=== PATIENT | female | born 1940 | race Caucasian/White ===

== ENCOUNTER 2022-12-25 14:22 | Outpatient (RCR) | payer MEDICARE, OTHER, SELFPAY | END 2022-12-26 14:06 | disposition home or self-care (01) | LOC: OT 14:22 | PROVIDERS: PCP Family Medicine; Visit Provider Family Medicine | DX: I89.0 Lymphedema, not elsewhere classified (principal) | CPT/HCPCS: 97110; 97140; 97166 ==

== ENCOUNTER 2023-03-11 10:10 | Outpatient (OUT) | payer MEDICARE, OTHER, SELFPAY ==
--- NOTE | 2023-03-11 10:13 | US_ITS ---
The [address] [address] Patient Name: SB LEMUS MRN: [facility]:[id number] date: 1940 Sex: F Assigned Patient Location: Current Patient Location: LAB Accession/Order Number: [id number] Exam Date: 03/11/2023 10:30 Report Date: 03/11/2023 11:46 At the request of: WICHO MASSEY Procedure: US renal BI EXAM: US renal BI HISTORY: Complex renal cyst N28.1, N20.1 COMPARISON: Ultrasound kidney 08/30/2022.. TECHNIQUE: Real-time ultrasound imaging of the kidneys and bladder. Findings: The right and left kidneys measure 10.7 and 10.0 cm. There is good corticomedullary differentiation bilaterally. No renal stones or collecting system dilatation. Redemonstrated off the interpolar region of the left kidney is a 3.0 x 2.4 x 2.6 cm cyst with a mural calcification. This is not changed significantly when compared to the prior study. No perinephric fluid collection. The bladder is nondistended limiting its evaluation. Prevoid volume of 15 mL. US/US renal BI IMPRESSION: 1. No significant interval change in the previously identified left renal cyst. Electronically authenticated by: AMAURY ADRIAN Date: 03/11/2023 11:46
== END 2023-03-11 10:11 | disposition home or self-care (01) ==
LOC: US 10:10
PROVIDERS: PCP Family Medicine; Visit Provider Urology
DX: N28.1 Cyst of kidney, acquired (principal); N20.1 Calculus of ureter
CPT/HCPCS: 76775

== ENCOUNTER 2023-03-11 11:29 | Outpatient (OUT) | payer MEDICARE, OTHER, SELFPAY ==
[2023-03-11 11:57] LABS: Basophils Absolute Auto 0.1 10^3/uL (0.0-0.1); Basophils Percent Auto 1.1 % (0.2-2.0); Eosinophils Absolute Auto 0.1 10^3/uL (0.0-0.7); Eosinophils Percent Auto 1.6 % (0.9-7.0); Hematocrit 33.4 % (36.0-48.0); Immature Granulocytes Abs Auto 0.04 10^3/uL (0.00-0.03); Immature Granulocytes Pct Auto 0.7 % (0.0-0.5); Lymphocytes Absolute Auto 0.7 10^3/uL (1.2-3.8); Lymphocytes Percent Auto 13.2 % (20.5-60.0); Mean Corpuscular HGB Conc 29.9 g/dL (29.9-35.2); Mean Corpuscular Hemoglobin 29.5 pg (26.7-34.0); Mean Corpuscular Volume 98.5 fL (81.0-99.0); Monocytes Absolute Auto 0.6 10^3/uL (0.3-0.8); Neutrophils Absolute Auto 4.1 10^3/uL (1.4-6.5); Neutrophils Percent Auto 73.4 % (43.0-75.0); Platelet Count 186 10^3/uL (150-450); Red Blood Count 3.39 10^6/uL (4.20-5.40); Red Cell Distribution Width 17.6 % (11.0-15.0); White Blood Count 5.6 10^3/uL (4.0-11.0)
[2023-03-11 12:37] LABS: Alanine Aminotransferase 10 U/L (14-59); Albumin Level 3.7 g/dL (3.4-5.0); Alkaline Phosphatase 147 U/L (46-116); Anion Gap 13.2; Aspartate Amino Transferase 15 U/L (15-37); BUN Creatinine Ratio 14.4; Calcium 9.6 mg/dL (8.5-10.1); Carbon Dioxide 26.5 mmol/L (21.0-32.0); Chloride 106 mmol/L (98-107); Estimated GFR (African America 50 (>=60); Estimated GFR (Non-African Ame 41 (>=60); Globulin 3.7 g/dL; Glucose 117 mg/dL (74-106); Potassium 4.7 mmol/L (3.5-5.1); Sodium 141 mmol/L (136-145); Total Protein 7.4 g/dL (6.4-8.2)
--- NOTE | 2023-03-11 13:02 | CA_ITS ---
Patient: SB LEMUS Exam Date: 03/11/2023 : 1940 Gender:F Ordering : COLTON SKINNER Admission #: [id number] Family : Order #: [id number] CLICK HERE TO VIEW EXAM ECHOCARDIOGRAM REPORT PROCEDURE: CA ECHO LIMITED INDICATIONS: Chronic CHF, Pulmonary HTN COMPARISON: None. DESCRIPTION: Limited ECHOCARDIOGRAM Real-time transthoracic echocardiography with 2D and M-mode performed. QUALITY: Technical quality was good. LEFT VENTRICLE: Normal chamber size. Normal left ventricular wall thickness. The septum is abnormal in motion consistent with right ventricular pressure/volume overload. Global left ventricular systolic function is at the lower limits of normal. LV EF: Estimated LVEF is 50%. DIASTOLIC: ATRIAL SEPTUM: LEFT ATRIUM: Moderate dilatation. RIGHT ATRIUM: Moderate dilatation. RIGHT VENTRICLE: Moderate dilatation. Mildly decreased right ventricular systolic function. TRICUSPID VALVE: Normal mobility and thickness. Severe pulmonary hypertension. RVSP 70 mmHg MITRAL VALVE: Normal mobility and thickness. AORTIC VALVE: Normal trileaflet appearance. The aortic valve opens well. AORTIC ROOT: Normal diameter and appearance. PULMONIC VALVE: Normal thickness and mobility. PERICARDIUM: Trivial pericardial effusion. IVC: Mild dilatation. Measuring 2.3 cm with no collapse PLEURA: CONCLUSION: 1. The left ventricular is normal in size and exhibits low normal systolic function. LVEF is 50%. 2. The right ventricle is moderately dilated with mildly reduced systolic function. 3. Moderate biatrial dilatation. 4. Severely elevated right-sided pressures. RVSP is 70 mmHg. 5. Limited study performed with limited Doppler interrogation of the tricuspid valve. Adult Echocardiography Procedure Report Left Ventricle LVEDD (3.7 - 5.6 cm): 5.28 cm LVESD (2.2 - 4.0 cm): 4.22 cm LVIVS thickness (0.6 - 1.2 cm): 0.70 cm LVPW thickness (0.5 - 1.0 cm): 0.84 cm LVOT Diameter 2.28 cm Left Ventricular Ejection Fraction: 50 % Left Atrium LA Volume Index (2D A2C): 48.36 ml/m2 Left Atrium Systolic Dimension: 4.76 cm Mitral Valve Right Ventricle RV Internal Diastolic Dimension: 4.41 cm Aorta AO Root Diam: 3.24 cm Ascending Ao Diam: 3.19 cm Aortic Valve Tricuspid Valve Peak Velocity (Regurgitant Flow): 3.74 m/s, 3.32 m/s Pulmonic Valve Right Atrium Right Atrium Systolic Pressure: 99.47 ml, 99.47 ml Dictated by: Rony Horn M.D. on 03/11/2023 at 17:33 Approved by: Rony Horn M.D. on 03/11/2023 at 17:38
== END 2023-03-11 11:30 | disposition home or self-care (01) ==
LOC: LAB 11:30
PROVIDERS: PCP Family Medicine; Visit Provider Nurse Practitioner
DX: I50.42 Chronic combined systolic (congestive) and diastolic (congestive) heart failure (principal); I27.20 Pulmonary hypertension, unspecified
CPT/HCPCS: 36415; 76775; 80053; 85025; 93308

== ENCOUNTER 2023-03-28 20:13 | Inpatient (IN) | payer MEDICARE, OTHER, SELFPAY ==
[2023-03-28] VITALS (27 sets, daily range): BP systolic 116–156; BP diastolic 62–87; PULSE 59–78; RESP 1–38; TEMP 36.7–36.8; O2SAT 83–99; BMI 34.2
--- NOTE | 2023-03-28 20:34 | ED.GENADUL1 ---
HPI - General Adult General Chief complaint: Shortness of Breath/Dyspnea Stated complaint: weakness, altered Time Seen by Provider: 03/28/23 20:33 Source: family Source information: granddaughter Mode of arrival: Wheelchair Limitations: altered mental status History of Present Illness HPI narrative: patient lives alone. Daughter states she is usually in her chair that she can recline in and raise her legs due to chronic edema. Tonight family found her slumped over and unresponsive in her chair. She did soil her clothing. Family brought her in. No history of dyspnea or cough. Feels very weak and required several staff to help get her out of the car. She also has swelling of the right arm which family states has been present for at least one month Related Data Home Medications Medication Instructions Recorded Confirmed aspirin 81 mg tablet,delayed 81 mg PO DAILY 03/28/23 03/28/23 release blood-glucose meter (True Metrix 03/28/23 03/28/23 Glucose Meter) furosemide 40 mg tablet 40 mg PO DAILY 03/28/23 03/28/23 glipizide 5 mg tablet 5 mg PO DAILY 03/28/23 03/28/23 lancets 30 gauge (Unilet Super 03/28/23 03/28/23 Thin Lancets) levothyroxine 75 mcg tablet 75 mcg PO DAILY 03/28/23 03/28/23 metoprolol succinate 25 mg 25 mg PO DAILY 03/28/23 03/28/23 tablet,extended release 24 hr omeprazole 20 mg capsule,delayed 20 mg PO DAILY 03/28/23 03/28/23 release potassium chloride 10 mEq 10 meq PO DAILY 03/28/23 03/28/23 tablet,extended release Allergies Allergy/AdvReac Type Severity Reaction Status Date / Time No Known Drug Allergies Allergy Verified 03/28/23 20:20 Review of Systems ROS Status of ROS 10 or more systems reviewed and unremarkable except as noted in history and below Exam Constitutional Vital Signs, click to edit/add: Last Vital Signs Temp 98.1 F 03/28/23 20:20 Pulse 77 03/28/23 22:01 Resp 21 03/28/23 22:01 BP 132/69 03/28/23 22:01 Pulse Ox 98 03/28/23 22:00 O2 Del Method Room Air 03/28/23 20:20 Common normals: no apparent distress, oriented x3 and alert Eye Common normals: EOMs intact bilaterally and conjunctivae normal Respiratory Common normals: normal respiratory effort, no retractions, no use of accessory muscles and clear to auscultation bilaterally GI Common normals: soft to palpation Other: trace edema of her abdominal wall Extremity Other: tense edema bilat lower extremities including feet and thighs Neuro Common normals: oriented x3, CN's II-XII intact bilaterally, moves all extremities and no focal motor deficits Psych Appearance: grossly normal Course Vital Signs Vital signs: Vital Signs Temperature 98.1 F 03/28/23 20:20 Pulse Rate 59 L 03/28/23 20:20 Respiratory Rate 38 H 03/28/23 20:20 Blood Pressure 146/82 H 03/28/23 20:20 Pulse Oximetry 96 03/28/23 20:20 Oxygen Delivery Method Room Air 03/28/23 20:20 Temperature 98.1 F 03/28/23 20:20 Pulse Rate 77 03/28/23 22:01 Respiratory Rate 21 03/28/23 22:01 Blood Pressure 132/69 03/28/23 22:01 Pulse Oximetry 98 03/28/23 22:00 Oxygen Delivery Method Room Air 03/28/23 20:20 Medical Decision Making MDM Narrative Medical decision making narrative: diabetic patient lives alone. Found at home slumped in her chair and has soiled herself. Brought to the ER by family. Very weak and staff had to help her out of the car. She is awake and in no distress. Has chronic edema of her legs , right arm and even her abdominal wall. labs remarkable for UTI. Discussed with the hospitalist and patient accepted for admission Lab Data Labs: Lab Results 03/28/23 03/28/23 Range/Units 20:40 21:10 WBC 5.3 (4.0-11.0) 10^3/uL RBC 3.32 L (4.20-5.40) 10^6/uL Hgb 9.9 L (12.0-16.0) g/dL Hct 33.5 L (36.0-48.0) % MCV 100.9 H (81.0-99.0) fL MCH 29.8 (26.7-34.0) pg MCHC 29.6 L (29.9-35.2) g/dL RDW 18.3 H (11.0-15.0) % Plt Count 197 (150-450) 10^3/uL MPV 10.8 (9.5-13.5) fL Neut % (Auto) 68.6 (43.0-75.0) % Lymph % (Auto) 17.1 L (20.5-60.0) % [place] % (Auto) 10.1 (1.7-12.0) % Eos % (Auto) 2.5 (0.9-7.0) % Baso % (Auto) 1.3 (0.2-2.0) % Neut # (Auto) 3.6 (1.4-6.5) 10^3/uL Lymph # (Auto) 0.9 L (1.2-3.8) 10^3/uL [place] # (Auto) 0.5 (0.3-0.8) 10^3/uL Eos # (Auto) 0.1 (0.0-0.7) 10^3/uL Baso # (Auto) 0.1 (0.0-0.1) 10^3/uL Abs Immat Gran (auto) 0.02 (0.00-0.03) 10^3/uL Imm/Tot Granulo (auto) 0.4 (0.0-0.5) % Sodium 144 (136-145) mmol/L Potassium 5.1 (3.5-5.1) mmol/L Chloride 111 H (98-107) mmol/L Carbon Dioxide 23.4 (21.0-32.0) mmol/L Anion Gap 14.7 BUN 18.0 (7.0-18.0) mg/dL Creatinine 1.30 H (0.55-1.02) mg/dL Est GFR ( Amer) 48 L (>=60) Est GFR (Non-Af Amer) 39 L (>=60) BUN/Creatinine Ratio 13.8 Glucose 180 H (74-106) mg/dL Lactate 2.1 H (0.4-2.0) mmol/L Calcium 8.9 (8.5-10.1) mg/dL Troponin I High Sens 10.3 (4.0-51.3) pg/mL NT-Pro-B Natriuret Pep 6661.0 H* (<=1800.0) pg/mL Urine Color Yellow (YELLOW) Urine Clarity Clear (CLEAR) Urine pH 6.0 (5.0-9.0) Ur Specific [place] 1.025 (1.005-1.025) Urine Protein 100 A (NEG/TRACE) mg/dL Urine Glucose (UA) Negative (NEGATIVE) mg/dL Urine Ketones Trace A (NEGATIVE) mg/dL Urine Occult Blood Small A (NEGATIVE) Urine Nitrite Positive A (NEGATIVE) Urine Bilirubin Negative (NEGATIVE) Urine Urobilinogen 1.0 (0.2-1.0) EU/dL Ur Leukocyte Esterase Small A (NEGATIVE) Urine RBC None seen (0-2) #/HPF Urine WBC >100 A (NONE SEEN) #/HPF Ur Squamous Epith Cells None seen (NONE/RARE) #/LPF Urine Crystals None seen (None Seen) #/HPF Urine Bacteria Large A (NONE SEEN) #/HPF Urine Casts Seen A (NONE SEEN) #/LPF Hyaline Casts Rare Urine Mucus None seen (NONE SEEN) Ur Culture Indicated? Yes Discharge Plan Discharge Chief Complaint: Shortness of Breath/Dyspnea Clinical Impression: Acute UTI (urinary tract infection) Patient Disposition: Admitted As Inpatient
--- NOTE | 2023-03-28 20:37 | ECG_ITS ---
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
--- NOTE | 2023-03-28 20:37 | XR_ITS ---
The [address] [address] Patient Name: SB LEMUS MRN: [id number] date: 1940 Sex: F Assigned Patient Location: ER Current Patient Location: ER Accession/Order Number: [id number] Exam Date: 03/28/2023 20:50 Report Date: 03/28/2023 21:00 At the request of: JOSE WILSON Procedure: XR chest 1V EXAM: XR chest 1V at 2049 hours HISTORY: weakness and wheezing. COMPARISON: 04/25/2022 TECHNIQUE: AP upright portable chest x-ray FINDINGS: The heart is enlarged with mild prominence of the central pulmonary vasculature. No acute infiltrate, effusion or pneumothorax is identified. The osseous structures are grossly intact. XR/XR chest 1V IMPRESSION: Mild cardiac enlargement with mild vascular congestion. There is no evidence of a focal infiltrate or overt cardiac decompensation, and the overall appearance of the chest is essentially unchanged. Electronically authenticated by: LING MAC Date: 03/28/2023 21:00
--- NOTE | 2023-03-28 20:51 | PC.NURSE ---
pt brought in by granddaughter. pt lives at home alone and takes care of self. pt has neighbors that check in on patient in the morning and at night. pt's granddaughter comes in a couple times of week to help pt out around house. granddaughter was at pt;s house yesterday and states that patient was fine and today when she came to check on pt she was unresponsive and soiled herself. granddaughter didn't call ems because she wanted to clean pt up before arrival. pt does take lasix for lower extremity edema but edema is worse today and all throughout bilateral lower extremities and up into patients abdomen. pt also has swelling to right upper extremity. pt and family member are poor historians and are unable to recall what medical history the patient has. on arrival to ED pt is wheezing upon auscultation.
[2023-03-28 21:15] LABS: Basophils Absolute Auto 0.1 10^3/uL (0.0-0.1); Basophils Percent Auto 1.3 % (0.2-2.0); Eosinophils Absolute Auto 0.1 10^3/uL (0.0-0.7); Eosinophils Percent Auto 2.5 % (0.9-7.0); Hematocrit 33.5 % (36.0-48.0); Hemoglobin 9.9 g/dL (12.0-16.0); Immature Granulocytes Abs Auto 0.02 10^3/uL (0.00-0.03); Immature Granulocytes Pct Auto 0.4 % (0.0-0.5); Lymphocytes Absolute Auto 0.9 10^3/uL (1.2-3.8); Lymphocytes Percent Auto 17.1 % (20.5-60.0); Mean Corpuscular HGB Conc 29.6 g/dL (29.9-35.2); Mean Corpuscular Hemoglobin 29.8 pg (26.7-34.0); Mean Corpuscular Volume 100.9 fL (81.0-99.0); Mean Platelet Volume 10.8 fL (9.5-13.5); Monocytes Absolute Auto 0.5 10^3/uL (0.3-0.8); Monocytes Percent Auto 10.1 % (1.7-12.0); Neutrophils Absolute Auto 3.6 10^3/uL (1.4-6.5); Neutrophils Percent Auto 68.6 % (43.0-75.0); Platelet Count 197 10^3/uL (150-450); Red Blood Count 3.32 10^6/uL (4.20-5.40); Red Cell Distribution Width 18.3 % (11.0-15.0); White Blood Count 5.3 10^3/uL (4.0-11.0)
[2023-03-28 21:32] LABS: Bilirubin Urine NEGATIVE (NEGATIVE); Blood Urine SMALL (NEGATIVE); Clarity Urine CLEAR (CLEAR); Color Urine YELLOW (YELLOW); Glucose Urine UA NEGATIVE (NEGATIVE); Ketones Urine TRACE mg/dL (NEGATIVE); Leukocyte Esterase Urine SMALL (NEGATIVE); Nitrite Urine POSITIVE (NEGATIVE); Protein Urine 100 mg/dL (NEG/TRACE); Specific Gravity Urine 1.025 (1.005-1.025)
[2023-03-28 21:36] LABS: Urine Microscopic Indicated YES
[2023-03-28 21:49] LABS: Anion Gap 14.7; BUN Creatinine Ratio 13.8; Calcium 8.9 mg/dL (8.5-10.1); Carbon Dioxide 23.4 mmol/L (21.0-32.0); Chloride 111 mmol/L (98-107); Estimated GFR (African America 48 (>=60); Estimated GFR (Non-African Ame 39 (>=60); Glucose 180 mg/dL (74-106); Potassium 5.1 mmol/L (3.5-5.1); Sodium 144 mmol/L (136-145); Troponin I High Sensitivity 10.3 pg/mL (4.0-51.3)
[2023-03-28 21:50] LABS: Lactate/Lactic Acid 2.1 mmol/L (0.4-2.0)
[2023-03-28 22:01] LABS: RBC Urine NONE SEEN #/HPF (0-2); WBC Urine >100 #/HPF (NONE SEEN)
[2023-03-28 22:02] LABS: Bacteria Urine LARGE #/HPF (NONE SEEN); Crystals Seen? None Seen #/HPF (None Seen); Mucus Urine NONE SEEN (NONE SEEN); Squamous Epithelial Cell Urine NONE SEEN #/LPF (NONE/RARE)
[2023-03-28 22:04] LABS: Cast Seen? SEEN #/LPF (NONE SEEN); Hyaline Casts Urine RARE
[2023-03-28 22:05] LABS: Urine Culture Indicated YES
[2023-03-28] MEDS: CEFTRIAXONE 1,000 MG in 0.9 % SODIUM CHLORIDE 50 ML 100 MG IV (22:16)
[2023-03-28 22:45] LABS: Alanine Aminotransferase 11 U/L (14-59); Albumin Globulin Ratio 1.1; Albumin Level 3.7 g/dL (3.4-5.0); Alkaline Phosphatase 152 U/L (46-116); Aspartate Amino Transferase 17 U/L (15-37); Globulin 3.4 g/dL; Total Protein 7.1 g/dL (6.4-8.2)
[2023-03-28 22:49] LABS: Bilirubin Direct 0.7 mg/dL (0.0-0.2)
[2023-03-28] MEDS: FUROSEMIDE 40 MG/4 ML VIAL IVP (22:55)
--- NOTE | 2023-03-28 23:44 | PC.NURSE ---
patient states she has glasses but did not bring them because they don't work anymore
[2023-03-29] VITALS (7 sets, daily range): BP systolic 117–129; BP diastolic 65–87; PULSE 67–79; RESP 16–18; TEMP 36.6–36.8; O2SAT 90–93
--- NOTE | 2023-03-29 00:52 | US_ITS ---
The [address] [address] Patient Name: SB LEMUS MRN: [id number] date: 1940 Sex: F Assigned Patient Location: MS Current Patient Location: MS Accession/Order Number: [id number] Exam Date: 03/29/2023 14:35 Report Date: 03/30/2023 01:59 At the request of: PAULINE WAGNER Procedure: US venous doppler UE RT EXAMINATION: US venous doppler UE RT HISTORY: swelling COMPARISON: No relevant comparison available. FINDINGS: REGION: Right upper extremity THROMBI: None. COMPRESSIBILITY: Normal compressibility. FLOW: Normal waveform and antegrade flow between 5 and 20 cm/s. OTHER: Irregular waveform; nonspecific. US/US venous doppler UE RT IMPRESSION: 1. No deep vein thrombus within the right upper extremity. Electronically authenticated by: ANDREE WILLETT Date: 03/30/2023 01:59
--- NOTE | 2023-03-29 00:52 | US_ITS ---
The [address] [address] Patient Name: SB LEMUS MRN: [id number] date: 1940 Sex: F Assigned Patient Location: MS Current Patient Location: MS Accession/Order Number: [id number] Exam Date: 03/29/2023 14:35 Report Date: 03/30/2023 01:58 At the request of: PAULINE WAGNER Procedure: US venous doppler LE BI EXAMINATION: US venous doppler LE BI HISTORY: swelling COMPARISON: No relevant comparison available. FINDINGS: REGION: Bilateral extremities THROMBI: None within deep system. COMPRESSIBILITY: Normal compressibility. FLOW: Normal waveform and antegrade flow between 5 and 20 cm/s. OTHER: Areas of chronic thrombus within the left small saphenous and great saphenous veins. US/US venous doppler LE BI IMPRESSION: 1. No deep vein thrombus within the right or left lower extremities. Electronically authenticated by: ANDREE WILLETT Date: 03/30/2023 01:58
[2023-03-29 01:30] LABS: Percent Iron Saturation 19.6 %
[2023-03-29 01:34] LABS: Estimated Average Glucose 131 mg/dL; Glycohemoglobin A1C 6.2 % (4.5-6.2)
--- NOTE | 2023-03-29 02:58 | P.PN_ITS ---
Progress Note: Subjective Subjective Interval history: Chief complaint: Generalized weakness, confusion HPI: 82-year-old female with history of HTN, DM type 2, HDL, GERD, pulmonary hypertension, who presents to the ER with complaints of generalized weakness. She lives by herself and the neighbors went to check on her found her to be very weak unable to get up on her own with her legs swollen and right arm swollen. At baseline she uses a walker and ambulates at home. Patient seems to be confused not providing a meaningful history. Workup in the ER found her to have a postvoid residual of 400 and a Shankar catheter was placed, UA suggestive of UTI and Rocephin was given. Other abnormal labs with low hemoglobin, hyperglycemia. Hospital Medicine consulted for admission. Past medical history: Hypertension, diabetes mellitus type 2, hypercholesterolemia, pulmonary hypertension, gastroesophageal reflux disease past surgical history: Unable to be obtained due to confusion social history: Lives by herself, no reports of alcohol or tobacco use. Allergies: No known drug allergies Home medications: Confirmed, reconciled in chart. Review of systems: Unable to be obtained due to confusion physical exam: Vitals as per chart documentation general: Lying in bed, pleasantly confused, no acute distress HEENT: Normocephalic, atraumatic, wearing eyeglasses, trachea midline CVS: Bilateral lower extremity edema, regular rate and rhythm lungs: Diminished breath sounds in bases extremities: Significant right upper extremity swelling neuro: No focal deficits skin: Multiple scabs noted Exam Constitutional Vital Signs, click to edit/add: Last Vital Signs Temp 98.2 F 03/28/23 23:57 Pulse 78 03/28/23 23:57 Resp 18 03/28/23 23:57 BP 156/84 H 03/28/23 23:57 Pulse Ox 91 L 03/28/23 23:57 O2 Del Method Room Air 03/28/23 23:57 Progress Note: Objective Labs Labs: Short CBC 03/28/23 Range/Units 21:10 WBC 5.3 (4.0-11.0) 10^3/uL Hgb 9.9 L (12.0-16.0) g/dL Hct 33.5 L (36.0-48.0) % Plt Count 197 (150-450) 10^3/uL BMP 03/28/23 21:10 Sodium 144 Potassium 5.1 Chloride 111 H Carbon Dioxide 23.4 BUN 18.0 Creatinine 1.30 H Glucose 180 H Calcium 8.9 Liver Function 03/28/23 Range/Units 21:10 Total Bilirubin 2.0 H (0.2-1.0) mg/dL Direct Bilirubin 0.7 H* (0.0-0.2) mg/dL AST 17 (15-37) U/L ALT 11 L (14-59) U/L Alkaline Phosphatase 152 H (46-116) U/L Albumin 3.7 (3.4-5.0) g/dL Urine 03/28/23 Range/Units 20:40 Urine Color Yellow (YELLOW) Urine Clarity Clear (CLEAR) Urine pH 6.0 (5.0-9.0) Ur Specific [place] 1.025 (1.005-1.025) Urine Protein 100 A (NEG/TRACE) mg/dL Urine Glucose (UA) Negative (NEGATIVE) mg/dL Progress Note: A&P Assessment and Plan (1) Acute UTI (urinary tract infection): (2) CHF (congestive heart failure): (3) CKD (chronic kidney disease): (4) Hypothyroidism: Plan acute encephalopathy, metabolic acute cystitis with microscopic hematuria acute urinary retention generalized weakness, debility at risk for falls bilateral lower extremity edema right upper extremity significant edema normocytic anemia unknown hemoglobin baseline diabetes mellitus type 2 with hyperglycemia pulmonary hypertension primary hypertension - admit to telemetry bed - avoid sedatives, hypnotics, delirium precautions, fall precautions, PT / OT evaluation - Shankar catheter placed in the ER, monitor urine output, lactic acid, start Rocephin, check urine cultures - check TSH, B12, folate, iron panel, retic count, electrophoresis anemia panel - check A1c level, low carb diet, sliding scale insulin coverage - Check venous duplex lower extremities and right upper extremity unsure why patient has unilateral right arm swelling, denies any history of lymphedema consider CT chest if DVT rules out -- 40 IV Lasix requested DVT prophylaxis-Lovenox medications reconciliation form completed goals of care-presumed full code until patient more alert her need to call family find out POA or decision maker to discuss code status communications: Discussed with emergency room physician, bedside nurse, updated plan of care, all questions answered to their satisfaction. Disposition: Consult long term care social worker for safe discharge as she lives alone as a provider of this telehealth evaluation, requested by the patient's evaluating physician, I attest that I introduced myself to the patient, provided my credentials, determined that telemedicine via real-time too interactive audio and video platform his an appropriate and effective means of providing this service. I reviewed the patient's chart and had a discussion with the member of the patient's treatment team. The patient treatment team and I mutually agreed with continuation of this evaluation via telemedicine. The nurse was present entire time of the encounter was able to move the stethoscope in appropriate directions. Telemedicine Attestation Telemedicine Attestation I conducted this encounter from [ [place]] via secure live, [id number] video conference with the patient, located at [facility] with [ nursing team]. Prior to the interview, the risks and benefits of telemedicine were discussed with the patient and verbal consent was obtained.
[2023-03-29] MEDS: LEVOTHYROXINE SODIUM 75 MCG TABLET PO (05:40)
[2023-03-29 05:54] LABS: Anion Gap 11.4; BUN Creatinine Ratio 14.8; Calcium 8.8 mg/dL (8.5-10.1); Carbon Dioxide 26.8 mmol/L (21.0-32.0); Chloride 111 mmol/L (98-107); Estimated GFR (African America 49 (>=60); Estimated GFR (Non-African Ame 40 (>=60); Glucose 107 mg/dL (74-106); Potassium 4.2 mmol/L (3.5-5.1); Sodium 145 mmol/L (136-145)
[2023-03-29 05:57] LABS: Basophils Absolute Auto 0.1 10^3/uL (0.0-0.1); Basophils Percent Auto 1.7 % (0.2-2.0); Eosinophils Absolute Auto 0.2 10^3/uL (0.0-0.7); Eosinophils Percent Auto 4.2 % (0.9-7.0); Hemoglobin 9.8 g/dL (12.0-16.0); Immature Granulocytes Abs Auto 0.02 10^3/uL (0.00-0.03); Immature Granulocytes Pct Auto 0.4 % (0.0-0.5); Lymphocytes Absolute Auto 1.1 10^3/uL (1.2-3.8); Lymphocytes Percent Auto 21.6 % (20.5-60.0); Mean Corpuscular HGB Conc 29.7 g/dL (29.9-35.2); Mean Corpuscular Hemoglobin 29.8 pg (26.7-34.0); Mean Corpuscular Volume 100.3 fL (81.0-99.0); Mean Platelet Volume 10.5 fL (9.5-13.5); Monocytes Absolute Auto 0.6 10^3/uL (0.3-0.8); Neutrophils Absolute Auto 3.2 10^3/uL (1.4-6.5); Neutrophils Percent Auto 61.1 % (43.0-75.0); Platelet Count 182 10^3/uL (150-450); Red Blood Count 3.29 10^6/uL (4.20-5.40); Red Cell Distribution Width 18.3 % (11.0-15.0); White Blood Count 5.3 10^3/uL (4.0-11.0)
[2023-03-29 06:07] LABS: Magnesium 1.9 mg/dL (1.8-2.4); Troponin I High Sensitivity 16.3 pg/mL (4.0-51.3)
--- NOTE | 2023-03-29 07:59 | P.HP_ITS ---
H&P: HPI History of Present Illness Chief complaint: weakness, altered Narrative: patient is a 82-year-old female with past medical history of hypertension, type 2 diabetes, hyperlipidemia, GERD, significant pulmonary hypertension, and chronic diastolic and systolic heart failure. She follows regularly with [facility] cardiology and just recently had an ECHO completed. she lives by herself and her grandchildren brought her to the emergency department when she was found sitting slumped in her recliner at home. She reports increased weakness and swelling of the right upper extremity and bilateral lower extremities. In the emergency department was found to have a urinary tract infection and also seems to have fluid overload based on chest x-ray and exam findings. She is alert and oriented this morning on exam there is no family in the room, she does note she has been taking her medications as prescribed. She denies any current concerns or complaints other than the swelling of her right upper extremity and lower extremities. Review of Systems ROS Narrative ROS: a complete review of systems were reviewed with patient and are positive as below or listed in History of Chief Complaint. General: no fever, chills, night sweats Head: no headache, trauma, visual changes, nausea or vomiting Skin: no reported rashes, itching or sores Eyes: no blurriness of vision Ears: no reported hearing loss, vertigo, earache, or tinnitus Throat: no sore throat, hoarseness, swelling of neck, or tongue pain Heart: no chest pain Lungs: no shortness of breath or cough GI: no diarrhea or vomiting/nausea Urinary: no urinary urgency, frequency or pain Neuro: no numbness or tingling HEM: no bleeding issues or bruising ENDO: thyroid problems Psych: no anxiety or depression [facility] Medical History (Updated 03/29/23 @ 11:31 by Kayleigh Lance DO) Social History Within the past year, how often did you have a drink containing alcohol: monthly or less Within the past year, how many standard drinks containing alcohol did you have on a typical day: 1 or 2 Within the past year, how often did you have six or more drinks on one occasion: never Total score: 0 Score interpretation: A score less than 3 is consistent with normal alcohol consumption. Smoking status: Never smoker Non-prescribed substance use: denies use Previous occupational history: Retired Highest level of school completed/degree received: high school graduate Are you now , , , , never or living with a partner: In a typical week, how many times do you talk on the telephone with family, friends, or neighbors: 3 or more times per week How often do you get together with friends or relatives: 3 or more times per week Little interest or pleasure in doing things: not at all Feeling down, depressed, or hopeless: not at all Feel stressed/tense/nervous/anxious/difficulty sleeping: not at all Do you think of yourself as: straight/heterosexual Gender Identity: female Meds Home Medications and Allergies Home Medications Medication Instructions Recorded Confirmed Type aspirin 81 mg tablet,delayed 81 mg PO DAILY 03/28/23 03/28/23 History release blood-glucose meter (True Metrix 03/28/23 03/28/23 History Glucose Meter) furosemide 40 mg tablet 40 mg PO DAILY 03/28/23 03/28/23 History glipizide 5 mg tablet 5 mg PO DAILY 03/28/23 03/28/23 History lancets 30 gauge (Unilet Super 03/28/23 03/28/23 History Thin Lancets) levothyroxine 75 mcg tablet 75 mcg PO DAILY 03/28/23 03/28/23 History metoprolol succinate 25 mg 25 mg PO DAILY 03/28/23 03/28/23 History tablet,extended release 24 hr omeprazole 20 mg capsule,delayed 20 mg PO DAILY 03/28/23 03/28/23 History release potassium chloride 10 mEq 10 meq PO DAILY 03/28/23 03/28/23 History tablet,extended release Allergies Allergy/AdvReac Type Severity Reaction Status Date / Time No Known Drug Allergies Allergy Verified 03/28/23 20:20 Exam Narrative Exam Narrative: General: Patient is alert, and oriented to person, place and time with normal affect Skin: candidal rash under bilateral breasts, groin Head: atraumatic, acephalic Eyes: PERRLA, no nystagmus present, conjunctiva clear but both eyes have matting upper and lower lids, no scleral icterus Ears: normal gross auditory acuity Nose: symmetric, no discharge, no maxillary or frontal sinus tenderness Neck: no masses palpated, normal thyroid, no JVD or audible carotid bruits Heart: Normal rate and rhythm, no murmurs/rubs/gallops Lungs: no audible wheezes, crackles and normal breath sounds all lung loco Abdomen: Normal audible bowel sounds, no distension, No palpable masses, no organomegaly, no rebound/guarding/ or rigidity, umbilical hernia, reducible, no erythema Musculoskeletal: +1 swelling bilateral lower extremities, +1 right upper extremity Vascular: Normal carotid, radial, femoral, posterior tibial, and dorsalis pedis pulses Lymph: no supraclavicular, axillary, or anterior/posterior cervical adenopathy Neuro: CN II-X grossly intact, normal sensation upper and lower extremities Constitutional Vital Signs, click to edit/add: Last Vital Signs Temp 98.1 F 03/29/23 05:27 Pulse 67 03/29/23 05:27 Resp 18 03/29/23 05:27 BP 126/72 03/29/23 05:27 Pulse Ox 92 L 03/29/23 05:27 O2 Del Method Room Air 03/29/23 05:27 Results Labs Labs: Short CBC 03/28/23 03/29/23 Range/Units 21:10 05:05 WBC 5.3 5.3 (4.0-11.0) 10^3/uL Hgb 9.9 L 9.8 L (12.0-16.0) g/dL Hct 33.5 L 33.0 L (36.0-48.0) % Plt Count 197 182 (150-450) 10^3/uL BMP 03/28/23 03/29/23 21:10 05:05 Sodium 144 145 Potassium 5.1 4.2 Chloride 111 H 111 H Carbon Dioxide 23.4 26.8 BUN 18.0 19.0 H Creatinine 1.30 H 1.28 H Glucose 180 H 107 H Calcium 8.9 8.8 Liver Function 03/28/23 Range/Units 21:10 Total Bilirubin 2.0 H (0.2-1.0) mg/dL Direct Bilirubin 0.7 H* (0.0-0.2) mg/dL AST 17 (15-37) U/L ALT 11 L (14-59) U/L Alkaline Phosphatase 152 H (46-116) U/L Albumin 3.7 (3.4-5.0) g/dL Urine 03/28/23 Range/Units 20:40 Urine Color Yellow (YELLOW) Urine Clarity Clear (CLEAR) Urine pH 6.0 (5.0-9.0) Ur Specific [place] 1.025 (1.005-1.025) Urine Protein 100 A (NEG/TRACE) mg/dL Urine Glucose (UA) Negative (NEGATIVE) mg/dL Assessment and Plan Assessment and Plan (1) Acute UTI (urinary tract infection): Assessment and Plan: continue Rocephin, awaiting urine culture (2) Metabolic encephalopathy: Assessment and Plan: monitor neurologic status and monitor telemetry, mental status has improved this morning (3) CHF (congestive heart failure): Assessment and Plan: acute on chronic, will increase Lasix from 40 mg daily to 40 mg IV twice a day, fluid restriction, salt restriction, monitor ins and outs and daily weights. Qualifiers: Heart failure type: combined systolic and diastolic Heart failure ch ronicity: acute on chronic Qualified Code(s): I50.43 - Acute on chronic combined systolic (congestive) and diastolic (congestive) heart failure (4) CKD (chronic kidney disease): Assessment and Plan: monitor daily Qualifiers: Chronic kidney disease stage: stage 2 (mild) Qualified Code(s): N18.2 - Chronic kidney disease, stage 2 (mild) (5) Hypothyroidism: Assessment and Plan: continue levothyroxine Qualifiers: Hypothyroidism type: acquired Qualified Code(s): E03.9 - Hypothyroidism, unspecified (6) Type 2 diabetes mellitus: Assessment and Plan: monitor poc qac and hs, SSI as needed (7) GERD (gastroesophageal reflux disease): Assessment and Plan: continue omeprazole (8) Swelling of right upper extremity: Assessment and Plan: will check ultrasounds/dopplers of RUE and BLE (9) Blepharitis, bilateral: Assessment and Plan: erythromycin ointment (10) Candidiasis: Assessment and Plan: topical nystatin (11) Weakness: Assessment and Plan: from infection, pt/ot Plan patient is a full code Continue Lovenox for deep vein thrombosis prophylaxis Patient is inpatient status and expected to stay more than two minutes due to her mental status, and fluid overload
[2023-03-29] MEDS: FUROSEMIDE 40 MG TABLET PO (08:53)
[2023-03-29] MEDS: POTASSIUM CHLORIDE 10 MEQ ER TABLET PO ×2 (08:53→21:04)
[2023-03-29] MEDS: OMEPRAZOLE 20 MG CAPSULE.DR PO (08:53)
[2023-03-29] MEDS: METOPROLOL SUCCINATE 25 MG TAB.ER.24H PO (08:53)
[2023-03-29] MEDS: NYSTATIN 100,000 UNITS/GRAM CREAM 15 GM TUBE 1 APPLIC TOPICAL (08:54)
[2023-03-29] MEDS: ASPIRIN 81 MG TABLET.DR PO (08:54)
[2023-03-29] MEDS: ENOXAPARIN SODIUM 40 MG/0.4 ML SYRINGE SUBQ (08:54)
[2023-03-29 11:33] LABS: Glucometer 145 mg/dL (74-106)
[2023-03-29 12:31] LABS: Lactate Dehydrogenase 229 U/L (81-234); Thyroid Stimulating Hormone 4.227 uIU/mL (0.358-3.740); Uric Acid 4.5 mg/dL (2.6-6.0)
[2023-03-29 16:13] LABS: Glucometer 151 mg/dL (74-106)
[2023-03-29 20:55] LABS: Glucometer 145 mg/dL (74-106)
[2023-03-29] MEDS: ERYTHROMYCIN OP OINT 0.5% 1 GM TUBE EYE-BOTH (21:04)
[2023-03-29] MEDS: INSULIN ASPART 300 UNIT/3 ML PEN SUBQ (21:05)
[2023-03-29] MEDS: NYSTATIN 15 GM POWDER 1 APPLIC TOPICAL (21:05)
[2023-03-29] MEDS: FUROSEMIDE 40 MG/4 ML VIAL IVP (21:31)
[2023-03-29] MEDS: CEFTRIAXONE 1,000 MG in 0.9 % SODIUM CHLORIDE 50 ML 100 MG IV (23:07)
[2023-03-30 04:45] VITALS: O2SAT 93
[2023-03-30] MEDS: LEVOTHYROXINE SODIUM 75 MCG TABLET PO (05:32)
[2023-03-30 05:35] VITALS: BP 107/58; PULSE 89; RESP 16; TEMP 36.4; O2SAT 91
[2023-03-30 07:38] LABS: Glucometer 125 mg/dL (74-106)
--- NOTE | 2023-03-30 08:21 | P.PN_ITS ---
Progress Note: Subjective Subjective Interval history: She is alert and oriented this morning on exam there is no family in the room. She denies any current concerns or complaints other than the swelling of her right upper extremity and lower extremities but states that they have improved. Exam Narrative Exam Narrative: General: Patient is alert, and oriented to person, place and time with normal affect Skin: candidal rash under bilateral breasts, groin Head: atraumatic, acephalic Eyes: PERRLA, no nystagmus present, conjunctiva clear but both eyes have matting upper and lower lids, no scleral icterus Ears: normal gross auditory acuity Nose: symmetric, no discharge, no maxillary or frontal sinus tenderness Neck: no masses palpated, normal thyroid, no JVD or audible carotid bruits Heart: Normal rate and rhythm, no murmurs/rubs/gallops Lungs: no audible wheezes, crackles and normal breath sounds all lung loco Abdomen: Normal audible bowel sounds, no distension, No palpable masses, no organomegaly, no rebound/guarding/ or rigidity, umbilical hernia, reducible, no erythema Musculoskeletal: +1 swelling bilateral lower extremities, +1 right upper extremity Vascular: Normal carotid, radial, femoral, posterior tibial, and dorsalis pedis pulses Lymph: no supraclavicular, axillary, or anterior/posterior cervical adenopathy Neuro: CN II-X grossly intact, normal sensation upper and lower extremities Constitutional Vital Signs, click to edit/add: Last Vital Signs Temp 97.5 F L 03/30/23 05:35 Pulse 89 03/30/23 05:35 Resp 16 03/30/23 05:35 BP 107/58 03/30/23 05:35 Pulse Ox 91 L 03/30/23 05:35 O2 Del Method Room Air 03/30/23 05:35 Progress Note: A&P Assessment and Plan (1) Acute UTI (urinary tract infection): Assessment and Plan: continue Rocephin, awaiting urine culture (2) Metabolic encephalopathy: Assessment and Plan: monitor neurologic status and monitor telemetry, mental status has improved (3) CHF (congestive heart failure): Assessment and Plan: acute on chronic, will increase Lasix from 40 mg daily to 40 mg IV twice a day, fluid restriction, salt restriction, monitor ins and outs and daily weights, cards consult, known [facility] patient Qualifiers: Heart failure chronicity: acute on chronic Heart failure type: combined systolic and diastolic Qualified Code(s): I50.43 - Acute on chronic combined systolic (congestive) and diastolic (congestive) heart failure (4) CKD (chronic kidney disease): Assessment and Plan: monitor daily Qualifiers: Chronic kidney disease stage: stage 2 (mild) Qualified Code(s): N18.2 - Chronic kidney disease, stage 2 (mild) (5) Hypothyroidism: Assessment and Plan: TSH elevated, increase levothyroxine to 100mcg daily Qualifiers: Hypothyroidism type: acquired Qualified Code(s): E03.9 - Hypothyroidism, unspecified (6) Type 2 diabetes mellitus: Assessment and Plan: monitor poc qac and hs, SSI as needed (7) GERD (gastroesophageal reflux disease): Assessment and Plan: continue omeprazole (8) Swelling of right upper extremity: Assessment and Plan: normal ultrasound, no DVT, dependent edema (9) Blepharitis, bilateral: Assessment and Plan: erythromycin ointment (10) Candidiasis: Assessment and Plan: topical nystatin (11) Weakness: Assessment and Plan: pt/ot Plan patient is a full code Continue Lovenox for deep vein thrombosis prophylaxis Patient is inpatient status and expected to stay more than two minutes due to her mental status, and fluid overload
[2023-03-30] MEDS: ENOXAPARIN SODIUM 40 MG/0.4 ML SYRINGE SUBQ (08:45)
[2023-03-30] MEDS: POTASSIUM CHLORIDE 10 MEQ ER TABLET PO ×2 (08:45→21:55)
[2023-03-30] MEDS: OMEPRAZOLE 20 MG CAPSULE.DR PO (08:46)
[2023-03-30] MEDS: METOPROLOL SUCCINATE 25 MG TAB.ER.24H PO (08:46)
[2023-03-30] MEDS: ASPIRIN 81 MG TABLET.DR PO (08:46)
[2023-03-30] MEDS: FUROSEMIDE 40 MG/4 ML VIAL IVP ×2 (08:46→21:55)
[2023-03-30] MEDS: ERYTHROMYCIN OP OINT 0.5% 1 GM TUBE EYE-BOTH ×2 (08:46→21:55)
[2023-03-30] MEDS: NYSTATIN 15 GM POWDER 1 APPLIC TOPICAL ×2 (08:46→21:56)
[2023-03-30 09:08] LABS: Haptoglobin 64 mg/dL (42-346)
[2023-03-30 11:05] LABS: Glucometer 156 mg/dL (74-106)
[2023-03-30 11:30] VITALS: O2SAT 95
[2023-03-30 14:26] VITALS: BP 108/62; PULSE 78; RESP 18; TEMP 36.6; O2SAT 90
[2023-03-30 16:14] LABS: Glucometer 118 mg/dL (74-106)
[2023-03-30 19:53] VITALS: O2SAT 91
[2023-03-30] MEDS: NYSTATIN 100,000 UNITS/GRAM CREAM 15 GM TUBE 1 APPLIC TOPICAL (21:55)
[2023-03-30] MEDS: INSULIN ASPART 300 UNIT/3 ML PEN SUBQ (21:57)
[2023-03-30 21:59] LABS: Glucometer 173 mg/dL (74-106)
[2023-03-30] MEDS: CEFTRIAXONE 1,000 MG in 0.9 % SODIUM CHLORIDE 50 ML 100 MG IV (22:12)
[2023-03-30 22:22] VITALS: BP 126/71; PULSE 78; RESP 18; TEMP 36.5; O2SAT 92
[2023-03-31] VITALS (7 sets, daily range): BP systolic 105–119; BP diastolic 57–87; PULSE 89–109; RESP 16–20; TEMP 36.7–36.8; O2SAT 90–94
[2023-03-31 04:58] LABS: Basophils Absolute Auto 0.1 10^3/uL (0.0-0.1); Basophils Percent Auto 1.2 % (0.2-2.0); Eosinophils Absolute Auto 0.2 10^3/uL (0.0-0.7); Eosinophils Percent Auto 4.1 % (0.9-7.0); Hematocrit 29.9 % (36.0-48.0); Hemoglobin 9.1 g/dL (12.0-16.0); Immature Granulocytes Abs Auto 0.01 10^3/uL (0.00-0.03); Immature Granulocytes Pct Auto 0.2 % (0.0-0.5); Lymphocytes Percent Auto 17.3 % (20.5-60.0); Mean Corpuscular HGB Conc 30.4 g/dL (29.9-35.2); Mean Corpuscular Hemoglobin 29.6 pg (26.7-34.0); Mean Corpuscular Volume 97.4 fL (81.0-99.0); Monocytes Absolute Auto 0.7 10^3/uL (0.3-0.8); Monocytes Percent Auto 11.4 % (1.7-12.0); Neutrophils Absolute Auto 3.9 10^3/uL (1.4-6.5); Neutrophils Percent Auto 65.8 % (43.0-75.0); Platelet Count 172 10^3/uL (150-450); Red Blood Count 3.07 10^6/uL (4.20-5.40); Red Cell Distribution Width 18.2 % (11.0-15.0); White Blood Count 5.9 10^3/uL (4.0-11.0)
[2023-03-31 05:23] LABS: Alanine Aminotransferase 11 U/L (14-59); Albumin Globulin Ratio 0.9; Albumin Level 2.9 g/dL (3.4-5.0); Alkaline Phosphatase 138 U/L (46-116); Anion Gap 12.6; Aspartate Amino Transferase 15 U/L (15-37); BUN Creatinine Ratio 17.6; Bilirubin Total 0.9 mg/dL (0.2-1.0); Calcium 8.8 mg/dL (8.5-10.1); Carbon Dioxide 28.6 mmol/L (21.0-32.0); Chloride 104 mmol/L (98-107); Cholesterol 104 mg/dL (<=200); Estimated GFR (African America 41 (>=60); Estimated GFR (Non-African Ame 34 (>=60); Globulin 3.3 g/dL; Glucose 131 mg/dL (74-106); HDL Cholesterol 35 mg/dL (40-60); Potassium 4.2 mmol/L (3.5-5.1); Sodium 141 mmol/L (136-145); Total Protein 6.2 g/dL (6.4-8.2); Triglycerides 44 mg/dL (<=150); VLDL CHOLESTEROL 8.8 mg/dL
[2023-03-31] MEDS: LEVOTHYROXINE SODIUM 100 MCG TABLET PO (05:39)
[2023-03-31 07:54] LABS: Glucometer 149 mg/dL (74-106)
--- NOTE | 2023-03-31 08:20 | P.PN_ITS ---
Progress Note: Subjective Subjective Interval history: She is alert and oriented this morning on exam, grand daughter and brother present at time of exam. She denies any current concerns or complaints other than the swelling of her right upper extremity and lower extremities but states that they have improved. We discussed code status with family and patient today, she wishes to be DNRCCA, this was signed and code status changed on the chart. Exam Narrative Exam Narrative: General: Patient is alert, and oriented to person, place and time with normal affect Skin: candidal rash under bilateral breasts, groin Heart: Normal rate and rhythm, no murmurs/rubs/gallops Lungs: no audible wheezes, crackles and normal breath sounds all lung loco Abdomen: Normal audible bowel sounds, no distension, No palpable masses, no organomegaly, no rebound/guarding/ or rigidity, umbilical hernia, reducible, no erythema Musculoskeletal: +1 swelling bilateral lower extremities, +1 right upper extremity Vascular: Normal carotid, radial, femoral, posterior tibial, and dorsalis pedis pulses Lymph: no supraclavicular, axillary, or anterior/posterior cervical adenopathy Neuro: CN II-X grossly intact, normal sensation upper and lower extremities Constitutional Vital Signs, click to edit/add: Last Vital Signs Temp 98.3 F 03/31/23 07:25 Pulse 109 H 03/31/23 07:25 Resp 20 03/31/23 07:25 BP 119/65 03/31/23 07:25 Pulse Ox 92 L 03/31/23 07:25 O2 Del Method Room Air 03/31/23 07:25 Progress Note: Objective Labs Labs: Short CBC 03/31/23 Range/Units 04:31 WBC 5.9 (4.0-11.0) 10^3/uL Hgb 9.1 L (12.0-16.0) g/dL Hct 29.9 L (36.0-48.0) % Plt Count 172 (150-450) 10^3/uL BMP 03/31/23 04:31 Sodium 141 Potassium 4.2 Chloride 104 Carbon Dioxide 28.6 BUN 26.0 H Creatinine 1.48 H Glucose 131 H Calcium 8.8 Liver Function 03/31/23 Range/Units 04:31 Total Bilirubin 0.9 (0.2-1.0) mg/dL AST 15 (15-37) U/L ALT 11 L (14-59) U/L Alkaline Phosphatase 138 H (46-116) U/L Albumin 2.9 L (3.4-5.0) g/dL Progress Note: A&P Assessment and Plan (1) Acute UTI (urinary tract infection): Assessment and Plan: continue Rocephin, awaiting urine culture, positive for Ecoli (2) Metabolic encephalopathy: Assessment and Plan: resolved. monitor neurologic status and monitor telemetry, mental status has improved (3) CHF (congestive heart failure): Assessment and Plan: acute on chronic, will increase Lasix from 40 mg daily to 40 mg IV twice a day, fluid restriction, salt restriction, monitor ins and outs and daily weights, cards consult, known [facility] patient, still requires diuresis today Qualifiers: Heart failure chronicity: acute on chronic Heart failure type: combined systolic and diastolic Qualified Code(s): I50.43 - Acute on chronic combined systolic (congestive) and diastolic (congestive) heart failure (4) CKD (chronic kidney disease): Assessment and Plan: monitor daily Qualifiers: Chronic kidney disease stage: stage 2 (mild) Qualified Code(s): N18.2 - Chronic kidney disease, stage 2 (mild) (5) Hypothyroidism: Assessment and Plan: TSH elevated, increase levothyroxine to 100mcg daily Qualifiers: Hypothyroidism type: acquired Qualified Code(s): E03.9 - Hypothyroidism, unspecified (6) Type 2 diabetes mellitus: Assessment and Plan: monitor poc qac and hs, SSI as needed (7) GERD (gastroesophageal reflux disease): Assessment and Plan: continue omeprazole (8) Swelling of right upper extremity: Assessment and Plan: normal ultrasound, no DVT, dependent edema (9) Blepharitis, bilateral: Assessment and Plan: erythromycin ointment (10) Candidiasis: Assessment and Plan: topical nystatin (11) Weakness: Assessment and Plan: pt/ot Plan patient is DNRCCA Continue Lovenox for deep vein thrombosis prophylaxis Patient is inpatient status and expected to stay more than two minutes due to need for further diuresis
[2023-03-31] MEDS: ENOXAPARIN SODIUM 40 MG/0.4 ML SYRINGE SUBQ (09:18)
[2023-03-31] MEDS: NYSTATIN 15 GM POWDER 1 APPLIC TOPICAL ×2 (09:19→20:41)
[2023-03-31] MEDS: ASPIRIN 81 MG TABLET.DR PO (09:19)
[2023-03-31] MEDS: METOPROLOL SUCCINATE 25 MG TAB.ER.24H PO (09:19)
[2023-03-31] MEDS: FUROSEMIDE 40 MG/4 ML VIAL IVP (09:19)
[2023-03-31] MEDS: POTASSIUM CHLORIDE 10 MEQ ER TABLET PO ×2 (09:19→20:43)
[2023-03-31] MEDS: OMEPRAZOLE 20 MG CAPSULE.DR PO (09:19)
[2023-03-31] MEDS: ERYTHROMYCIN OP OINT 0.5% 1 GM TUBE EYE-BOTH ×2 (09:20→20:48)
[2023-03-31] MEDS: NYSTATIN 100,000 UNITS/GRAM CREAM 15 GM TUBE 1 APPLIC TOPICAL ×2 (09:20→20:42)
--- NOTE | 2023-03-31 10:09 | SWNOTE1 ---
SW spoke with doctor and case management and pt/family would like her to go to SNF. SW stopped in to talk with pt and family and provided list from medicare.gov with star ratings. They are going to review and SW to stop back in.
--- NOTE | 2023-03-31 10:32 | SWNOTE1 ---
SW spoke with pt and family in room. Pt's daughter and in room. Pt has been to [facility], she went last year in April for rehab. Pt's family is still discussing facilities. Daughter would like to call a few facilities and check in to alf rates as well. They did ask if a choice has to be made today, SW let them know it would be good to know today so SW can make sure a bed is available at the facility they want SW to check back in a little bit.
--- NOTE | 2023-03-31 10:50 | CM.NOTE ---
Rounds made with Dr. Lance, no discharge today. Continue IV diuresis and possible discharge tomorrow.
--- NOTE | 2023-03-31 11:31 | CM.NOTE ---
Important message From Medicare discussed with pt, pt verbalizes understanding and signs paper. Original given to pt and copy placed on pt's chart.
--- NOTE | 2023-03-31 11:37 | SWNOTE1 ---
It was pt's grand-daughter and brother in room.
--- NOTE | 2023-03-31 11:37 | PT.DAILY ---
Physical Therapy Daily Note PT Daily Note/Assess Start: 03/31/23 11:32 Freq: Status: Active Protocol: Document 03/31/23 11:32 SOCORRO (Rec: 03/31/23 11:33 [facility]-[email or web address]) Physical Therapy Daily Note/Assessment Time In/Time Out Time In 10:40 Time Out 11:15 Pain In Pain N/A Pain Out Pain N/A Subjective Subjective Pt sitting in BS chair upon arrival. Agrees to PT. student affairs dean would like to give pt a shower when done with session. Therapeutic Exercise Time Therapeutic Exercise Minutes (minutes) 5 Therapeutic Exercise Units 0 Therapeutic Exercise Treatment Therapeutic Exercise Treatment Pt performs seated Total Physical Therapy Time Total Therapy Minutes 5 Total Physical Therapy Units 0 Edit Result 03/31/23 11:32 MYASAUL (Rec: 03/31/23 11:[email or web address] Daily Note/Assessment Therapeutic Exercise Treatment Therapeutic Exercise Treatment Pt performs seated LE strengthening ex in BS chair. AP, LAQ, marches, abd step outs and add squeezes 10x ea. Therapeutic Activity Time Therapeutic Activity Minutes (minutes) 23 Therapeutic Activity Units 2 Therapeutic Activity Treatment Chair Transfer Ability Moderate Assist Therapeutic Activity Comments Sit>stand from BS chair to RW with ModA. Demonstrates heavy forward flexed lean on RW. Static standing 30 sec before requesting to sit down. Therapist got a short RW for pt to help avoid leaning over RW. Pt sit>stand again to new RW with ModA. Pt able to stand a little more erect with this attempt. Pt amb 10' with RW CGA/Claudette before needing to sit . Pt sits on couch in room. WC is brought to room to transport her to shower. Sit> stand to RW from couch - ModA. Stand pivot to WC with Claudette - increased time needed for pivot. Pt is transported to shower area. Sit>stand from WC to RW and another stand pivot to shower bench. Pt remains in shower area and school of nursing director is notified and present upon therapists departure. Total Physical Therapy Time Total Therapy Minutes 28 Total Physical Therapy Units 2 Summary Daily Note Summary Improved standing posture with shorter RW. Very easily fatigued with activity today, Would benefit from SNF to regain strength/endurance to return to PLOF.
[2023-03-31 11:54] LABS: Glucometer 135 mg/dL (74-106)
[2023-03-31 12:08] LABS: Albumin 3.4 g/dL (2.9-4.4); Alpha-1-Globulin 0.3 g/dL (0.0-0.4); Alpha-2-Globulin 0.7 g/dL (0.4-1.0); Gamma Globulin 0.8 g/dL (0.4-1.8); Protein, Total 6.3 g/dL (6.0-8.5)
--- NOTE | 2023-03-31 12:35 | SWNOTE1 ---
Family would like [facility]. to send information.
[2023-03-31 14:29] LABS: SARS-CoV-2 Ag NEGATIVE (NEGATIVE)
--- NOTE | 2023-03-31 15:29 | SWNOTE1 ---
SW received message from [facility] and they are able to accept. SW updated nursing and family.
[2023-03-31 16:08] LABS: Glucometer 172 mg/dL (74-106)
--- NOTE | 2023-03-31 18:26 | P.CACN_ITS ---
History of Present Illness History of Present Illness Consult date: 03/31/23 Requesting physician: Kayleigh Lance Consult reason: congestive heart failure Chief complaint: weakness, altered Narrative: Mrs. Mitchell is an 82-year-old female with a past medical history including paroxysmal atrial fibrillation status post watchman, heart failure with preserved ejection fraction, coronary artery disease, who presented to the hospital with complaints of altered mental status and shortness of breath. Patient was found to have a urinary tract infection, and she was noted to be fluid overloaded. Cardiology was consulted for assistance in management of heart failure with preserved ejection fraction. Patient is interviewed and examined. She is tangential in her train of thought, and is unable to explain exactly what is bothering her. She does report improved shortness of breath, but states that she continues to have lower extremity edema, in addition to right upper extremity swelling. She adamantly denies any chest pain. She denies any orthopnea or paroxysmal nocturnal dyspnea. She states that she is taking her medications as prescribed. Of note: Patient recently had an outpatient echocardiogram done. Ejection fraction was noted to be 50%. She has moderately dilated atria. She has severely elevated RVSP at 70 mmHg. Mild reduction in RV systolic function was noted. Review of Systems ROS Status of ROS 10 or more systems reviewed and unremarkable except as noted in history and below [facility] Medical History (Updated 03/29/23 @ 11:31 by Kayleigh Lance DO) Social History Within the past year, how often did you have a drink containing alcohol: monthly or less Within the past year, how many standard drinks containing alcohol did you have on a typical day: 1 or 2 Within the past year, how often did you have six or more drinks on one occasion: never Total score: 0 Score interpretation: A score less than 3 is consistent with normal alcohol consumption. Smoking status: Never smoker Non-prescribed substance use: denies use Previous occupational history: Retired Highest level of school completed/degree received: high school graduate Are you now , , , , never or living with a partner: In a typical week, how many times do you talk on the telephone with family, friends, or neighbors: 3 or more times per week How often do you get together with friends or relatives: 3 or more times per week Little interest or pleasure in doing things: not at all Feeling down, depressed, or hopeless: not at all Feel stressed/tense/nervous/anxious/difficulty sleeping: not at all Do you think of yourself as: straight/heterosexual Gender Identity: female Meds Home Medications and Allergies Home Medications Medication Instructions Recorded Confirmed Type aspirin 81 mg tablet,delayed 81 mg PO DAILY 03/28/23 03/28/23 History release blood-glucose meter (True Metrix 03/28/23 03/28/23 History Glucose Meter) furosemide 40 mg tablet 40 mg PO DAILY 03/28/23 03/28/23 History glipizide 5 mg tablet 5 mg PO DAILY 03/28/23 03/28/23 History lancets 30 gauge (Unilet Super 03/28/23 03/28/23 History Thin Lancets) levothyroxine 75 mcg tablet 75 mcg PO DAILY 03/28/23 03/28/23 History metoprolol succinate 25 mg 25 mg PO DAILY 03/28/23 03/28/23 History tablet,extended release 24 hr omeprazole 20 mg capsule,delayed 20 mg PO DAILY 03/28/23 03/28/23 History release potassium chloride 10 mEq 10 meq PO DAILY 03/28/23 03/28/23 History tablet,extended release Allergies Allergy/AdvReac Type Severity Reaction Status Date / Time No Known Drug Allergies Allergy Verified 03/28/23 20:20 Exam Constitutional Vital Signs, click to edit/add: Last Vital Signs Temp 98.0 F 03/31/23 14:00 Pulse 92 H 03/31/23 14:00 Resp 18 03/31/23 14:00 BP 118/87 03/31/23 14:00 Pulse Ox 94 L 03/31/23 14:00 O2 Del Method Room Air 03/31/23 14:00 Documenting provider has reviewed patient's vital signs: yes Common normals: no apparent distress and alert General appearance: cooperative Orientation/consciousness: Yes awake HENMT Common normals: normocephalic and head/scalp atraumatic Eye Common normals: PERRL and EOMs intact bilaterally Respiratory Effort & inspection: able to speak in complete sentences Cardio Common normals: regular rate and regular rhythm Heart sounds: S1 normal and S2 normal GI Common normals: Normal to inspection, nondistended, normoactive bowel sounds present Extremity General: edema (Bilateral lower extremity edema, 2+. RUE swelling. ) Neuro Common normals: moves all extremities and no focal motor deficits Psych Common normals: cooperative Appearance: grossly normal Results Labs and Meds Lab results: Cardiac Enzymes 03/31/23 Range/Units 04:31 AST 15 (15-37) U/L Lipids 03/31/23 Range/Units 04:31 Triglycerides 44 (<=150) mg/dL Cholesterol 104 (<=200) mg/dL HDL Cholesterol 35 L (40-60) mg/dL Cholesterol/HDL Ratio 3.0 CBC 03/31/23 Range/Units 04:31 WBC 5.9 (4.0-11.0) 10^3/uL RBC 3.07 L (4.20-5.40) 10^6/uL Hgb 9.1 L (12.0-16.0) g/dL Hct 29.9 L (36.0-48.0) % Plt Count 172 (150-450) 10^3/uL Neut # (Auto) 3.9 (1.4-6.5) 10^3/uL Lymph # (Auto) 1.0 L (1.2-3.8) 10^3/uL [place] # (Auto) 0.7 (0.3-0.8) 10^3/uL Eos # (Auto) 0.2 (0.0-0.7) 10^3/uL Baso # (Auto) 0.1 (0.0-0.1) 10^3/uL Comprehensive Metabolic Panel 03/31/23 Range/Units 04:31 Sodium 141 (136-145) mmol/L Potassium 4.2 (3.5-5.1) mmol/L Chloride 104 (98-107) mmol/L Carbon Dioxide 28.6 (21.0-32.0) mmol/L BUN 26.0 H (7.0-18.0) mg/dL Creatinine 1.48 H (0.55-1.02) mg/dL Glucose 131 H (74-106) mg/dL Calcium 8.8 (8.5-10.1) mg/dL AST 15 (15-37) U/L ALT 11 L (14-59) U/L Alkaline Phosphatase 138 H (46-116) U/L Total Protein 6.2 L (6.4-8.2) g/dL Albumin 2.9 L (3.4-5.0) g/dL Intake and Output 03/31/23 03/31/23 03/31/23 07:59 15:59 23:59 Intake Total 240 / 240 Output Total 1400 / 2200 2049 Balance -1400 / -2100 -1810 / -1810 Intake: Oral 240 / 240 Output: Urine 525 / 525 Urine Amount (Catheter) 1399 1525 / 1525 Urethral 1399 1525 / 1525 Other: Weight 89 kg Assessment and Plan Assessment and Plan (1) Acute UTI (urinary tract infection): (2) Metabolic encephalopathy: (3) CHF (congestive heart failure): Qualifiers: Heart failure type: combined systolic and diastolic Heart failure chronicity: acute on chronic Qualified Code(s): I50.43 - Acute on chronic combined systolic (congestive) and diastolic (congestive) heart failure (4) CKD (chronic kidney disease): Qualifiers: Chronic kidney disease stage: stage 2 (mild) Qualified Code(s): N18.2 - Chronic kidney disease, stage 2 (mild) (5) Hypothyroidism: Qualifiers: Hypothyroidism type: acquired Qualified Code(s): E03.9 - Hypothyroidism, unspecified (6) Type 2 diabetes mellitus: (7) GERD (gastroesophageal reflux disease): (8) Swelling of right upper extremity: (9) Blepharitis, bilateral: (10) Candidiasis: (11) Weakness: Plan 1. For her heart failure with preserved ejection fraction, acute on chronic, agree with current diuretic regimen. Lasix was increased from 40 mg daily to 40 mg twice daily IV. She has had good output. Would continue at current dose, she appears to be fluid overloaded. 2. Would recommen repeating echo to assess LVEF, wall motion, RVSP 3. Would recommend US of RUE to ensure no clot 4. She has watchmann for AFib VTE prophylaxis. Continue current rate control medications 5. Treatment of underlying UTI as per primary Thank you for allowing us to participate in the care of your patient. please do not hesitate to contact [place] [facility]ology with any questions or concerns. Jez Verduzco MD
[2023-03-31 20:50] LABS: Glucometer 170 mg/dL (74-106)
[2023-03-31] MEDS: INSULIN ASPART 300 UNIT/3 ML PEN SUBQ (21:15)
[2023-03-31] MEDS: CEFTRIAXONE 1,000 MG in 0.9 % SODIUM CHLORIDE 50 ML 100 MG IV (22:02)
[2023-04-01 04:38] VITALS: BP 90/51; PULSE 110; RESP 20; TEMP 38.1; O2SAT 92
[2023-04-01 04:50] VITALS: TEMP 38.1
[2023-04-01] MEDS: LEVOTHYROXINE SODIUM 100 MCG TABLET PO (04:50)
[2023-04-01] MEDS: ACETAMINOPHEN 325 MG TABLET 650 MG PO (04:50)
[2023-04-01 05:19] LABS: Basophils Absolute Auto 0.1 10^3/uL (0.0-0.1); Eosinophils Absolute Auto 0.2 10^3/uL (0.0-0.7); Eosinophils Percent Auto 3.5 % (0.9-7.0); Hemoglobin 9.4 g/dL (12.0-16.0); Immature Granulocytes Abs Auto 0.02 10^3/uL (0.00-0.03); Immature Granulocytes Pct Auto 0.3 % (0.0-0.5); Lymphocytes Absolute Auto 1.2 10^3/uL (1.2-3.8); Lymphocytes Percent Auto 20.7 % (20.5-60.0); Mean Corpuscular HGB Conc 31.3 g/dL (29.9-35.2); Mean Corpuscular Hemoglobin 30.5 pg (26.7-34.0); Mean Corpuscular Volume 97.4 fL (81.0-99.0); Mean Platelet Volume 10.2 fL (9.5-13.5); Monocytes Absolute Auto 0.9 10^3/uL (0.3-0.8); Monocytes Percent Auto 14.2 % (1.7-12.0); Neutrophils Absolute Auto 3.6 10^3/uL (1.4-6.5); Neutrophils Percent Auto 60.3 % (43.0-75.0); Platelet Count 171 10^3/uL (150-450); Red Blood Count 3.08 10^6/uL (4.20-5.40); Red Cell Distribution Width 17.7 % (11.0-15.0)
[2023-04-01 05:44] LABS: Alanine Aminotransferase 12 U/L (14-59); Albumin Globulin Ratio 0.8; Albumin Level 2.9 g/dL (3.4-5.0); Alkaline Phosphatase 139 U/L (46-116); Anion Gap 10.2; Aspartate Amino Transferase 20 U/L (15-37); BUN Creatinine Ratio 21.4; Bilirubin Total 1.1 mg/dL (0.2-1.0); Calcium 8.3 mg/dL (8.5-10.1); Carbon Dioxide 28.7 mmol/L (21.0-32.0); Chloride 105 mmol/L (98-107); Estimated GFR (African America 44 (>=60); Estimated GFR (Non-African Ame 36 (>=60); Globulin 3.5 g/dL; Glucose 132 mg/dL (74-106); Potassium 3.9 mmol/L (3.5-5.1); Sodium 140 mmol/L (136-145); Total Protein 6.4 g/dL (6.4-8.2)
[2023-04-01 06:27] VITALS: TEMP 37.3
[2023-04-01] MEDS: ENOXAPARIN SODIUM 30 MG/0.3 ML SYRINGE SUBQ (08:39)
[2023-04-01] MEDS: OMEPRAZOLE 20 MG CAPSULE.DR PO (08:39)
[2023-04-01] MEDS: FUROSEMIDE 40 MG/4 ML VIAL IVP (08:39)
[2023-04-01] MEDS: POTASSIUM CHLORIDE 10 MEQ ER TABLET PO (08:40)
[2023-04-01] MEDS: NYSTATIN 100,000 UNITS/GRAM CREAM 15 GM TUBE 1 APPLIC TOPICAL (08:40)
[2023-04-01] MEDS: ASPIRIN 81 MG TABLET.DR PO (08:40)
[2023-04-01] MEDS: METOPROLOL SUCCINATE 25 MG TAB.ER.24H PO (08:40)
[2023-04-01] MEDS: ERYTHROMYCIN OP OINT 0.5% 1 GM TUBE EYE-BOTH (08:40)
[2023-04-01] MEDS: NYSTATIN 15 GM POWDER 1 APPLIC TOPICAL (08:41)
--- NOTE | 2023-04-01 08:56 | PM.DS1 ---
DS: Providers Provider Date of admission: 03/28/23 23:36 Primary care physician: Samantha Ewing MD Admitting clinician: Aysha Vela Consults: 03/29/23 00:48 Occupational Therapy Eval and Treat Routine Reason for consultation: fall risk Physical Therapy Eval and Treat Routine Reason for consultation: fall risk 03/30/23 13:02 Consult to Cardiology Routine Consulting Provider: SHORTY SYLVESTER Reason for consultation: acute chf Has provider been notified: No Attending physician on discharge: Kayleigh Lance DS: Diagnosis Discharge Diagnosis (1) Acute UTI (urinary tract infection): (2) Metabolic encephalopathy: (3) CHF (congestive heart failure): Qualifiers: Heart failure chronicity: acute on chronic Heart failure type: combined systolic and diastolic Qualified Code(s): I50.43 - Acute on chronic combined systolic (congestive) and diastolic (congestive) heart failure (4) CKD (chronic kidney disease): Qualifiers: Chronic kidney disease stage: stage 2 (mild) Qualified Code(s): N18.2 - Chronic kidney disease, stage 2 (mild) (5) Hypothyroidism: Qualifiers: Hypothyroidism type: acquired Qualified Code(s): E03.9 - Hypothyroidism, unspecified (6) Type 2 diabetes mellitus: (7) GERD (gastroesophageal reflux disease): (8) Swelling of right upper extremity: (9) Blepharitis, bilateral: (10) Candidiasis: (11) Weakness: DS: Summary Hospital Course Hospital Course: urinary tract infection from Escherichia coli is sensitive to ciprofloxacin. Will place on 250 mg twice a day ?7 days, patient continued on Rocephin here for a white blood cell count and signs of sepsis at the time of discharge. There was a Shankar catheter inserted as patient was having weakness to get up on her own to use the restroom this will be continued at the [place] [facility] and they can remove Shankar when they 1st see fit. Acute on chronic combined congestive heart failure, patient has diuresed well on Lasix 40 mg IV twice a day. We'll continue 40 mg by mouth twice a day ?7 days along with potassium replacement at 10 mEq by mouth twice a day ?7 days. Patient will need a recheck electrolytes and renal function after completion of the seven days of Lasix and potassium. She will then resume her Lasix 40 mg by mouth daily along with her potassium 10 mEq by mouth daily. cardiology was consult and had No new recommendations. She will follow up with cardiology as an outpatient.patient will also need her thyroid-stimulating hormone rechecked as it was slightly elevated on the 75 ?g daily. Ultrasound of her right upper shot today was negative for any deep vein thromboses, all dependent edema which seemed to improve with diuresis. We'll continue on topical nystatin for her candidal infection and erythromycin ointment for her bilateral blepharitis. She will be discharged to [facility] for acute rehab. Patient is a DNR CCA Status at Discharge Functional status at discharge: uses cane/walker Overall status at discharge: patient is progressing back to baseline Time Spent with Patient Time attestation: Total time spent providing and/or coordinating discharge services: Time spent: greater than 30 minutes Quality: Stroke Symptom Onset Unknown: No Exam Narrative Exam Narrative: General: Patient is alert, and oriented to person, place and time with normal affect Skin: candidal rash under bilateral breasts, groin Heart: Normal rate and rhythm, no murmurs/rubs/gallops Lungs: no audible wheezes, crackles and normal breath sounds all lung loco Abdomen: Normal audible bowel sounds, no distension, No palpable masses, no organomegaly, no rebound/guarding/ or rigidity, umbilical hernia, reducible, no erythema Musculoskeletal: +1 swelling bilateral lower extremities, +1 right upper extremity Vascular: Normal carotid, radial, femoral, posterior tibial, and dorsalis pedis pulses Lymph: no supraclavicular, axillary, or anterior/posterior cervical adenopathy Neuro: CN II-X grossly intact, normal sensation upper and lower extremities Constitutional Vital Signs, click to edit/add: Last Vital Signs Temp 99.2 F 04/01/23 06:27 Pulse 110 H 04/01/23 04:38 Resp 20 04/01/23 04:38 BP 90/51 04/01/23 04:38 Pulse Ox 92 L 04/01/23 04:38 O2 Del Method Room Air 04/01/23 04:38 DS: Data Data Completed and Pending Labs on day of discharge: Labs from last 24 hours 04/01/23 03/31/23 03/31/23 04:44 20:47 16:07 WBC 6.0 RBC 3.08 L Hgb 9.4 L Hct 30.0 L MCV 97.4 MCH 30.5 MCHC 31.3 RDW 17.7 H Plt Count 171 MPV 10.2 Neut % (Auto) 60.3 Lymph % (Auto) 20.7 [place] % (Auto) 14.2 H Eos % (Auto) 3.5 Baso % (Auto) 1.0 Neut # (Auto) 3.6 Lymph # (Auto) 1.2 [place] # (Auto) 0.9 H Eos # (Auto) 0.2 Baso # (Auto) 0.1 Abs Immat Gran (auto) 0.02 Imm/Tot Granulo (auto) 0.3 Sodium 140 Potassium 3.9 Chloride 105 Carbon Dioxide 28.7 Anion Gap 10.2 BUN 30.0 H Creatinine 1.40 H Est GFR ( Amer) 44 L Est GFR (Non-Af Amer) 36 L BUN/Creatinine Ratio 21.4 Glucose 132 H Calcium 8.3 L Total Bilirubin 1.1 H AST 20 ALT 12 L Alkaline Phosphatase 139 H Total Protein 6.4 Total Protein (PEP) Albumin 2.9 L Albumin (PEP) Globulin 3.5 Globulin (PEP) Albumin/Globulin Ratio 0.8 Albumin/Globulin (PEP) Fmvul-0-Qiwovqtrk Nujkc-2-Jjslilrqb Beta Globulins Gamma Globulins M-Evan PEP Note SARS-CoV-2 (PCR) POC Glucose 170 H 172 H 03/31/23 03/31/23 03/29/23 14:07 11:43 05:05 WBC RBC Hgb Hct MCV MCH MCHC RDW Plt Count MPV Neut % (Auto) Lymph % (Auto) [place] % (Auto) Eos % (Auto) Baso % (Auto) Neut # (Auto) Lymph # (Auto) [place] # (Auto) Eos # (Auto) Baso # (Auto) Abs Immat Gran (auto) Imm/Tot Granulo (auto) Sodium Potassium Chloride Carbon Dioxide Anion Gap BUN Creatinine Est GFR ( Amer) Est GFR (Non-Af Amer) BUN/Creatinine Ratio Glucose Calcium Total Bilirubin AST ALT Alkaline Phosphatase Total Protein Total Protein (PEP) 6.3 Albumin Albumin (PEP) 3.4 Globulin Globulin (PEP) 2.9 Albumin/Globulin Ratio Albumin/Globulin (PEP) 1.2 Hprct-9-Ebejufzwz 0.3 Agkds-5-Drxqagmvf 0.7 Beta Globulins 1.1 Gamma Globulins 0.8 M-Evan Not observed PEP Note Comment SARS-CoV-2 (PCR) Negative POC Glucose 135 H Discharge Plan Discharge Disposition: Xfer SNF Discharge Medications: New nystatin 100,000 unit/gram powder 1 applic topical BID 10 Days Qty: 1 0RF erythromycin 5 mg/gram (0.5 %) Ointment 1,000 mg EYE-BOTH BID 7 Days Qty: 2800 0RF potassium chloride [Klor-Con M10] 10 mEq Tablet,Er Particles/Crystals 10 meq PO BID 7 Days Qty: 14 0RF ciprofloxacin HCl 500 mg tablet 250 mg PO BID 7 Days Qty: 7 0RF furosemide [Lasix] 40 mg tablet 40 mg PO BID 7 Days Qty: 14 0RF Rx Instructions: 40mg PO BID x 7 days, then resume once daily Continued aspirin 81 mg tablet,delayed release (DR/EC) 81 mg PO DAILY glipizide 5 mg tablet 5 mg PO DAILY (DME) blood-glucose meter [True Metrix Glucose Meter] Mis MISCELLANEOUS levothyroxine 75 mcg tablet 75 mcg PO DAILY (DME) lancets [Unilet Super Thin Lancets] 30 gauge misc MISCELLANEOUS metoprolol succinate 25 mg tablet extended release 24 hr 25 mg PO DAILY omeprazole 20 mg capsule,delayed release(DR/EC) 20 mg PO DAILY Held furosemide 40 mg tablet 40 mg PO DAILY Hold Instructions: Resume on 04/08/23. 40mg BID x 7 days, then resume 40mg daily potassium chloride 10 mEq tablet extended release 10 meq PO DAILY Hold Instructions: Resume on 04/08/23. 10mEq PO BID x 7 days, then resume 10 mEq PO daily Forms: Portal Instructions Follow Up Appointments: [facility] cardiology wed 04/02/23 @ 10 am will need CMP in 5-7 days from [place] [facility] Will be Discharged with Shankar Catheter, will need to be removed once stable enough to use restroom on own Discharge location: [facility]
--- NOTE | 2023-04-01 10:40 | CM.NOTE ---
Rounds made with addie Davis for discharge today to [facility].
[2023-04-01 11:30] VITALS: O2SAT 92
[2023-04-01 11:55] LABS: Glucometer 146 mg/dL (74-106)
--- NOTE | 2023-04-01 13:21 | SWNOTE1 ---
Pt is ready for discharge, SW set up trips transport for 2-2:30. SW notified nursing, [facility], and pt's grand-daughter. SW completed HENS and updated packet. ED sent over dc orders as well. Pt is going to [facility] for skilled.
[2023-04-01 14:13] LABS: Albumin, U 41.5 % (.); Alpha-1-Globulin, U 2.7 % (.); Alpha-2-Globulin, U 10.8 % (.); Beta Globulin, U 32.2 % (.); Gamma Globulin, U 12.8 % (.); M-Spike, % 20.3 % (Not Observed); Protein,Total,Urine 97.1 mg/dL (Not Estab.)
[2023-04-01 15:50] LABS: SARS-CoV-2 NAA INVALID (NOT DETECTE)
[2023-08-25 13:48] LABS: Reticulocyte Count 1.22 % (0.60-3.10)
== END 2023-04-01 13:55 | DRG 689 ==
LOC: ER 22:51 → MS 23:37
PROVIDERS: Admitting Provider Internal Medicine; Emergency Provider Internal Medicine; PCP Family Medicine; Visit Provider Family Medicine
DX: N39.0 Urinary tract infection, site not specified (principal); G93.41 Metabolic encephalopathy; I50.43 Acute on chronic combined systolic (congestive) and diastolic (congestive) heart failure; I13.0 Hypertensive heart and chronic kidney disease with heart failure and stage 1 through stage 4 chronic kidney disease, or unspecified chronic kidney disease; N18.2 Chronic kidney disease, stage 2 (mild); B96.20 Unspecified Escherichia coli [E. coli] as the cause of diseases classified elsewhere; E03.9 Hypothyroidism, unspecified; Z66 Do not resuscitate; R60.0 Localized edema; I27.20 Pulmonary hypertension, unspecified; E87.70 Fluid overload, unspecified; I48.91 Unspecified atrial fibrillation; I25.10 Atherosclerotic heart disease of native coronary artery without angina pectoris; E78.00 Pure hypercholesterolemia, unspecified; E11.22 Type 2 diabetes mellitus with diabetic chronic kidney disease; K21.9 Gastro-esophageal reflux disease without esophagitis; H01.006 Unspecified blepharitis left eye, unspecified eyelid; H01.003 Unspecified blepharitis right eye, unspecified eyelid; R53.1 Weakness; B37.9 Candidiasis, unspecified; Z79.82 Long term (current) use of aspirin; Z79.899 Other long term (current) drug therapy; Z79.890 Hormone replacement therapy
CPT/HCPCS: 36415; 36416; 71045; 80048; 80053; 80061; 80076; 81001; 82607; 82728; 82746; 82948; 83010; 83036; 83540; 83550; 83605; 83615; 83735; 83880; 84155; 84165; 84443; 84484; 84550; 85025; 85045; 87086; 87150; 87186; 87635; 87811; 93005; 93970; 93971; 94761; 96365; 96366; 96372; 96375; 96376; 97162; 97165; 97530; 97535; 99285; Q3014; U0003